=== PATIENT | female | born 2000 | race African-American/Black ===

== ENCOUNTER 2022-06-18 21:41 | Emergency (ER) | payer SELFPAY ==
[~2022-06-18] VITALS: Ht 167.6 cm; Wt 84.0 kg
[2022-06-18] MEDS ORDERED: ONDANSETRON HCL 4MG/2ML INJ IV STA (21:58)
[2022-06-18] MEDS ORDERED: SODIUM CHLORIDE 0.9% 1,000 ML IV ONE (22:00)
[2022-06-18] MEDS ORDERED: MAGNESIUM/ALUMINUM HYDROXIDE/SIMETHICONE 30ML UDC PO ONE (22:30)
[2022-06-18] MEDS ORDERED: VISCOUS LIDOCAINE 2% 15 ML UDC MM ONE (22:30)
[2022-06-18] MEDS ORDERED: PANTOPRAZOLE SODIUM 40 MG/VIAL IV ONE (22:30)
[2022-06-18 23:17] LABS: BASOPHILS % 0.6 % (0.0-2.0); EOSINOPHILS % 0.3 % (0.0-5.0); HEMATOCRIT. 38.2 % (36.0-48.0); HEMOGLOBIN. 12.9 g/dL (12.0-16.0); LYMPHOCYTES % 9.5 % (20.0-50.0); MEAN CORPUSCULAR HEMOGLOBIN 29.9 pg (28.0-32.0); MEAN CORPUSCULAR VOLUME 88.2 fL (81.0-99.0); MEAN PLATELET VOLUME 9.9 fl (7.4-10.4); MONOCYTES % 9.8 % (2.0-8.0); NEUTROPHILS % 79.8 % (40.0-76.0); PLATELET 179 x1000/uL (130-400); RED BLOOD CELL COUNT 4.33 mill/uL (4.2-5.4); RED CELL DISTRIBUTION WIDTH 14.6 % (11.6-14.6)
[2022-06-18 23:24] LABS: CHLORIDE 106 mEq/L (98-107)
[2022-06-18 23:32] LABS: ETHANOL BLOOD < 10 mg/dL
[2022-06-19 00:09] LABS: HCG SCREEN NEGATIVE
[2022-06-19] MEDS ORDERED: PANTOPRAZOLE SODIUM 40 MG/VIAL IV NR (01:00)
[2022-06-19] MEDS ORDERED: MAGNESIUM/ALUMINUM HYDROXIDE/SIMETHICONE 30ML UDC PO NR (01:00)
[2022-06-19] MEDS ORDERED: VISCOUS LIDOCAINE 2% 15 ML UDC MM NR (01:00)
[2022-06-19] MEDS ORDERED: ONDANSETRON HCL 4MG/2ML INJ IV NR (01:00)
[2022-06-19] MEDS ORDERED: ONDA4TAB50 MT (01:36)
[2022-06-19] MEDS ORDERED: MAG355OR21 MT (01:36)
[2022-06-19] MEDS ORDERED: PROT40 MT (02:12)
[2022-06-19] MEDS ORDERED: ACETAMINOPHEN 325MG TABLET PO ONE (02:15)
[2022-06-19] MEDS ORDERED: PROCHLORPERAZINE 10MG/2ML VIAL IM ONE (03:00)
[2022-06-19 04:24] VITALS: BP 109/61
[2022-06-19] MEDS ORDERED: OMEP20CA14 PO (11:59)
== END 2022-06-19 04:45 | disposition home or self-care (01) ==
LOC: ER 21:41
DX: R10.13 Epigastric pain (principal); R11.2 Nausea with vomiting, unspecified; R07.0 Pain in throat
CPT/HCPCS: 36415; 80053; 80320; 83690; 84703; 85025; 96361; 96374; 96375; 96376; 99284; C9113; J0780; J2405; J7030; G0480

== ENCOUNTER 2022-06-19 08:54 | Emergency (ER) | payer OTHER ==
[~2022-06-19] VITALS: Ht 167.6 cm; Wt 62.0 kg
[~2022-06-19 08:54] MED LIST: MAG355OR21 MT; ONDA4TAB50 MT; PROT40 MT
[2022-06-19] MEDS ORDERED: MAGNESIUM/ALUMINUM HYDROXIDE/SIMETHICONE 30ML UDC PO ONE (09:15)
[2022-06-19] MEDS ORDERED: VISCOUS LIDOCAINE 2% 15 ML UDC PO ONE (09:15)
[2022-06-19] MEDS ORDERED: DICYCLOMINE 10 MG/5 ML ORAL SYR PO ONE (09:15)
[2022-06-19] MEDS ORDERED: METOCLOPRAMIDE HCL 10MG TABLET PO ONE (09:15)
[2022-06-19 09:49] LABS: BASOPHILS % 0.5 % (0.0-2.0); EOSINOPHILS % 0.1 % (0.0-5.0); HEMATOCRIT. 37.7 % (36.0-48.0); HEMOGLOBIN. 12.7 g/dL (12.0-16.0); LYMPHOCYTES % 12.9 % (20.0-50.0); MEAN CORPUSCULAR HEMOGLOBIN 29.6 pg (28.0-32.0); MEAN CORPUSCULAR VOLUME 87.9 fL (81.0-99.0); MEAN PLATELET VOLUME 10.5 fl (7.4-10.4); MONOCYTES % 8.9 % (2.0-8.0); NEUTROPHILS % 77.6 % (40.0-76.0); PLATELET 189 x1000/uL (130-400); RED BLOOD CELL COUNT 4.29 mill/uL (4.2-5.4); RED CELL DISTRIBUTION WIDTH 14.3 % (11.6-14.6)
[2022-06-19 10:01] LABS: CHLORIDE 105 mEq/L (98-107)
[2022-06-19] MEDS ORDERED: ONDANSETRON HCL 4MG TABLET PO ONE (10:30)
[2022-06-19] MEDS ORDERED: ONDANSETRON 4MG ODT PO ONE ×2 (10:45→13:15)
[2022-06-19] MEDS ORDERED: OMEP20CA14 PO (11:59)
[2022-06-19 13:15] VITALS: BP 118/78
== END 2022-06-19 13:16 | disposition home or self-care (01) ==
LOC: ER 08:54
DX: R07.89 Other chest pain (principal); J45.909 Unspecified asthma, uncomplicated
CPT/HCPCS: 36415; 71045; 74176; 80053; 81025; 83880; 85025; 93005; 99285; J8597; Q0162